=== PATIENT | female | born 2000 | race Two or more races ===

== ENCOUNTER 2024-11-27 10:31 | Emergency (ER) | payer MEDICAID, OTHER ==
[~2024-11-27] VITALS: Ht 160 cm; Wt 75.8 kg
--- NOTE | 2024-11-27 10:54 | ED.PDOC ---
History of Present Illness(SKN HPI Comments 24 y.o female presents to the ED for an evaluation of of a rash localized to her right foot on the inner heel portion that started one week ago. Patient denies any pain, lacerations or bleeding. Additionally, patient also complains of white vaginal discharge with pruritus that worsens when inserting a tampon during her menstrual cycles. She denies any vaginal bleeding, fever, chills, abdominal pain. Chief Complaint: Rash Time Seen by MD: 10:48 History of Present Illness: Nurses Notes, Medications, Allergies Allergies: Coded Allergies: NO KNOWN ALLERGIES (Unverified , 11/27/24) Information Source: Patient Mode of Arrival: Ambulatory Severity: Moderate Timing: Weeks (1) Duration: Since onset Location: Foot Mechanism: Spontaneous Onset Associated Signs and Symptoms: Redness Past Medical History PAST MEDICAL HISTORY: Denies Surgical History: Denies all surgeries MULTI MEDIA SPECIALIST History: No Pertinent MULTI MEDIA SPECIALIST History Family History Family History: Reviewed,noncontributory to illness, No family hx of Cancer, No family hx of DM, No family hx of Heart fitz, No family hx of HTN, No family hx ofKidney fitz, No family hx of Liver fitz, No family hx of Lung fitz, No family hx of Stroke Social History Smoker: Other Alcohol: Denies ETOH Use Drugs: Denies Drug Use Lives In: Home Constitutional: denies: chills, diaphoresis, fatigue, fever, malaise, sweats, weakness, others EENTM: denies: blurred vision, double vision, ear bleeding, ear discharge, ear drainage, ear pain, ear ringing, eye pain, eye redness, hearing loss, mouth pain, mouth swelling, nasal discharge, nose bleeding, nose congestion, nose pain, photophobia, tearing, throat pain, throat swelling, voice changes, others Respiratory: denies: cough, hemoptysis, orthopnea, SOB at rest, shortness of breath, SOB with excertion, stridor, wheezing, others Cardiovascular: denies: chest pain, dizzy spells, diaphoresis, Dyspnea on exertion, edema, irregular heart beat, left arm pain, lightheadedness, palpitations, PND, syncope, others Gastrointestinal: denies: abdomen distended, abdominal pain, blood streaked bowels, constipated, diarrhea, dysphagia, difficulty swallowing, hematemesis, melena, nausea, poor appetite, poor fluid intake, rectal bleeding, rectal pain, vomiting, others Genitourinary: reports: vagina discharge; denies: abnormal vagina bleeding, burning, dyspareunia, dysuria, flank pain, frequency, hematuria, incontinence, pain, , urgency, others Neurological: denies: dizziness, fainting, headache, left sided numbness, left sided weakness, numbness, paresthesia, pre-existing deficit, right sided numbness, right sided weakness, seizure, speech problems, tingling, tremors, weakness, others Musculoskeletal: denies: back pain, gout, joint pain, joint swelling, muscle pain, muscle stiffness, neck pain, others Integumetry: reports: rash; denies: bruises, change in color, change in hair/nails, dryness, laceration, lesions, lumps, wounds, others Allergic/Immunocompromised: denies: Difficulty Healing, Frequent Infections, Hives, Itching, others Hematologic/Lymphatic: denies: anemia, blood clots, easy bleeding, easy bruising, swollen glands, others Endocrine: denies: excessive hunger, excessive sweating, excessive thirst, excessive urination, flushing, intolerance to cold, intolerance to heat, unexplained weight gain, unexplained weight loss, others Psychiatric: denies: anxiety, bipolar disorder, depression, hopeless, panic disorder, schizophrenia, sleepless, suicidal, others All Other Systems: Reviewed and Negative Physical Exam General Appearance: No Apparent Distress, None HEENT: Normal ENT Inspection, PERRL/EOMI Neck: Full Range of Motion, Non-Tender, Normal, Normal Inspection Respiratory: Chest Non-Tender, Lungs Clear, No Accessory Muscle Use, No Respiratory Distress, Normal Breath Sounds Cardiovascular: No Edema, No JVD, No Murmur, No Gallop, Normal Peripheral Pulses, Regular Rate/Rhythm Breast Exam: Deferred Gastrointestinal: No Organomegaly, Non Tender, No Pulsatile Mass, Normal Bowel Sounds, Soft Genitalia: Other (Tendinitis) Pelvic: Deferred Rectal: Deferred Extremities: No calf tenderness, Normal capillary refill, Normal inspection, Normal range of motion, Non-tender, No pedal edema Musculoskeletal : Location: Right Extremity Location: Foot, Other (Tinea pedis) Apperance: Normal Neurologic: Alert, electrical electronics engineers II-XII nml as Tested, No Motor Deficits, Normal Affect, Normal Mood, No Sensory Deficits Cerebellar Function: Normal Reflexes: Normal Skin: Dry, Normal Color, Warm Peripheral Pulses: 1+ carotid (R), 1+ carotid (L) Lymphatic: No Adenopathy Was a procedure done? Was a procedure done?: No Differential Diagnosis (INTG) Differential Diagnosis: N/A Differential Diagnosis: Candidiasis, Contact Dermatitis Differential Diagnosis: N/A Abscess: N/A Differential Diagnosis: N/A X-Ray, Labs, Meds, VS Vital Signs Date Time Temp Pulse Resp B/P (MAP) Pulse Ox O2 Delivery O2 Flow Rate FiO2 11/27/24 10:32 98.1 74 18 122/71 98 98.1 X-Ray, Labs, Meds, VS Comment Course in the [employer] eventful patient came in with a tinea pedis to the foot and also vaginal infection Patient will be discharged home with a appropriate medication Time of 1ST Reevaluation: 10:53 Reevaluation 1ST: Unchanged Patient Education/Counseling: Diagnosis, Treatment, Prognosis Family Education/Counseling: No Family Present SEPSIS Sepsis Screen Date sepsis recognized/suspect: Nov 27, 2024 Time Sepsis recognized/suspect: 1033 Recent Procedure: No On Antibiotic Therapy: No Respiratory Rate >20: No Heart Rate >90: No Temp<36 C (96.8 F) or >38.3 C: No SBP <90 or MAP <65 mmHG: No New Acute Mental Status Change: No Is the patient on CPAP, BIPAP,: No Vital Signs Date Time Temp Pulse Resp B/P (MAP) Pulse Ox O2 Delivery O2 Flow Rate FiO2 11/27/24 10:32 98.1 74 18 122/71 98 98.1 Departure 1 Departure Time of Disposition: 10:59 Impression: Primary Impression: Tinea pedis Qualified Codes: B35.3 - Tinea pedis Additional Impression: Acute candidiasis of vulva and vagina Disposition: HOME / SELF CARE / HOMELESS Condition: Good Additional Instructions: Cleaned with peroxide and apply cream e-Prescriptions Miconazole Nitrate Vaginal (Monistat 7 Combination Pa 100 & 2 mg-% (9Gm)) 1 Kit Kit 1 KIT VA DAILY for 7 Days, #1 KIT Prov: CAL OBRIEN MD 11/27/24 Clotrimazole W/ Betamethasone (Clotrimazole/Betamethason 1-0.05 %) 1 Cre Cre 1 CRE EX BID for 10 Days, #60 CRE Prov: CAL OBRIEN MD 11/27/24 Discharged With: Self Critical Care Note Critical Care Time?: No Stability Stability form required: No I personally scribed for CAL OBRIEN MD ([email or web address]) on 11/27/24 at 10:54. Electronically submitted by Rosa Oglesby ([facility]). CAL OBRIEN MD Nov 27, 2024 10:54
[2024-11-27 11:00] VITALS: BP 114/75; PULSE 77; RESP 16; TEMP 97.8; O2SAT 98
[2024-11-27] MEDS ORDERED: MICO1KIT10 VA (11:04)
[2024-11-27] MEDS ORDERED: CLOTCRE3 EX (11:04)
[2024-11-27] MEDS ORDERED: FLUC200T PO (11:06)
[2024-11-27 12:17] LABS: Urine Protein, UAD TRACE (Negative)
== END 2024-11-27 12:45 | disposition home or self-care (01) ==
LOC: ER 10:31
DX: B35.3 Tinea pedis (principal); B37.31 Acute candidiasis of vulva and vagina; F17.200 Nicotine dependence, unspecified, uncomplicated; Z79.899 Other long term (current) drug therapy
CPT/HCPCS: 81001